=== PATIENT | female | born 1960 | race Caucasian/White ===

== ENCOUNTER 2016-04-19 22:27 | Inpatient (IN) | payer BC ==
[2016-04-19] MEDS ORDERED: Albuterol/Ipratropium Neb 3 ML NEB NEB ONE (22:56)
[2016-04-19] MEDS ORDERED: ALBUTEROL 0.083% 3 ML NEB NEB ONE (22:56)
[2016-04-19] MEDS ORDERED: METHYLPREDNISOLONE 125 MG/2 ML VIAL IV ONE (22:56)
--- NOTE | 2016-04-19 22:59 | EDPRACDOC ---
- General Information Chief Complaint: Dyspnea/Resp distress Stated Complaint: SHOB & COUGH Time Seen by Provider: 04/19/16 22:51 Information Source: Patient Mode Of Arrival: Ambulance Home Medications: Home Medications Albuterol Sulfate 2.5 mg IH Q4 #30 vial.neb 04/06/16 Amoxicillin/Potassium Clav [Augmentin 875-125 Tablet] 1 tab PO BID 04/06/16 Levofloxacin [Levaquin] 750 mg PO DAILY #10 tab 04/06/16 Prednisone [Sterapred DS 10 mg/12 day pack] 48 tab PO DIR #1 pack 04/06/16 Tussionex [Tussionex Oral Suspension] 5 ml PO BID PRN #120 ml 04/06/16 Allergies/Adverse Reactions: Allergies Allergy/AdvReac Type Severity Reaction Status Date / Time No Known Allergies Allergy Verified 04/06/16 17:04 - History of Present Illness Onset: 4 days HPI: Pt c/o increased SOB x 4 days with congestion, cough. Pt states she has been sick since Feb. Pt has completed multiple antibiotics and steroids. Denies fever , earache, sore throat, cp, abd pain, n/v, changes in bowel or bladder, rash. Pt states leg swelling this episode. 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 negative: Fever, Chills, Weakness, Fatigue, Loss of Appetite Ears: No Symptoms Reported. negative: Pain, Hearing Loss, Drainage, Ear Pulling Throat: No Symptoms Reported. negative: Pain, Swelling Nose: Congestion. negative: No Symptoms Reported, Abrasion, Bleeding, Discharge , Deformity, Ecchymosis, Injection, Laceration, Swelling, Tender Mouth: No Symptoms Reported. negative: Pain, Drooling Respiratory: Cough, Shortness of Breath Cardiovascular: Edema. negative: No Symptoms Reported, Chest Pain, Cyanosis, Orthopnea, Palpitations, PND, Syncope, Skin Mottling Gastrointestinal: No Symptoms Reported. negative: Pain, Constipation, Nausea, Vomiting, Diarrhea, Melena, Formula Intolerance Genitourinary: No Symptoms Reported. negative: Dysuria, Hematuria, Frequency, Discharge, Bleeding, Testicular Pain, Neurological: No Symptoms Reported. negative: Headache, Dizziness, Seizure, Numbness, Weakness, Speech Difficulty, Gait Difficulty Musculoskeletal: No Symptoms Reported. negative: Neck, Chestwall, Ribs, Back, Shoulder, Arm, Elbow, Forearm, Wrist, Hand, Pelvis, Hip, Femur, Knee, Leg, Ankle , Foot Integumentary: No Symptoms Reported. negative: Itching, Rash, Bruising, Wound Allergic/Immunologic: No Symptoms Reported. negative: Hives, Itching Hematologic: No Symptoms Reported. negative: Lymphadenopathy, Easy Bruising, Easy Bleeding Psychiatric: No Symptoms Reported. negative: Anxiety, Depression, Hallucinations, Insomnia, Suicidal - Physical Exam Constitutional: Alert, Distress (moderate) Oriented to: Time, Person, Place Last recorded Vital Signs: Last Vital Signs Temp 98.1 F 04/19/16 22:42 Pulse 105 04/19/16 22:42 Resp 22 04/19/16 22:42 BP 171/107 H 04/19/16 22:42 Pulse Ox 86 L 04/19/16 22:42 Oxygen Pulse Oxygen Saturation 86 O2 Device Oxygen Flow Rate Fraction of Inspired Oxygen ( FIO2) - HEENT Head: Normal ( normocephalic) Eye Exam: Normal (PERRL, EOMI, Sclera white) Oropharynx: Membranes Dry Tympanic Membrane: Normal ENT EAC: Normal Nose: Congestion Neck: Normal (FROM, trachea at midline) - Respiratory/Cardiovascular Respiratory: Diminished, Wheezes Cardiovascular: Tachycardia - GI Auscultation: Normal (NABS) Palpation: Normal (Soft,No rebound or guarding, non distended) Tenderness: Non tender - Musculoskeletal Back: Normal (Non-Tender) Extremities: Edema (+2 pitting edema), Pedal Edema - Integumentary Skin: Normal, Warm, Dry Lymphatics: Normal (no adenopathy) - Neurologic Memory Impaired: Normal Motor Function: Normal (Normal tone, Pulses 2+ No cyanosis or edema, FROM) Mood Description: Normal Perception: Normal ED SOB MDM - Differential Diagnosis Differential Diagnosis: Heart Failure, Pulmonary Embolus, Pnuemonia, Respiratory Insufficiency, URI, Other (COPD excaerbation) - Results Result Diagrams: 04/19/16 22:51 04/19/16 23:07 - EKG EKG #1 EKG Time: 23:45 Rate: bpm: 105 [place]: RAD Rhythm: ST Block: None ST: Nonsp Comparison: 01/24/13 - Departure Disposition: Admit IP To This Hospital Condition: Stable Final Diagnosis: Acute exacerbation of chronic obstructive airways disease Acute respiratory failure Qualifiers: Respiratory failure complication: hypoxia and hypercapnia Qualified Code(s): J96.01 - Acute respiratory failure with hypoxia; J96.02 - Acute respiratory failure with hypercapnia Education/Counseling Given To: Patient Education/Counseling Given Regarding: Diagnosis, Treatment Decision to Admit Time: 23:51 Decision to admit date: 04/20/16 Decision to admit: from ED - Physician Consulted Hospitalist Time Called: 23:51 Provider Called: Lorne Cristobal Time [employer] Returned Call: 23:51 (Will see in ED)
[2016-04-19 23:14] LABS: ALLEN'S TEST PASS; TCO2 33.8 MMOL/L (23-27)
[2016-04-19 23:15] LABS: ABG Draw Site Right Radial
[2016-04-19 23:39] LABS: AUTOMATED BASOPHIL 0.2 % (0-2); AUTOMATED EOSINOPHIL 0.1 % (0-5); AUTOMATED LYMPH 13.2 % (17-44); AUTOMATED NEUTROPHIL 74.5 % (45-76); MPV 8.8 fL (7.4-10.4)
[2016-04-19] MEDS ORDERED: Pharmacy Review for Metformin - IV Contrast Given SCH (23:45)
[2016-04-19 23:54] LABS: BLOOD UREA NITROGEN 27 MG/DL (7-17); CALCIUM 9.7 MG/DL (8.4-10.2); CALCULATED OSMOLALITY 270 MOs/Kg (270-290); CHLORIDE 96 mEq/L (98-107); GLUCOSE 114 MG/DL (70-99); SODIUM LEVEL 137 mEq/L (137-146); TOTAL PROTEIN 7.8 G/DL (6.3-8.2)
--- NOTE | 2016-04-19 23:56 | HISTPHYS ---
- Chief Complaint shortness of breath - History of Present Illness PRIMARY CARE PROVIDER: Dr. Alejo HPI: The patient is a 56 yo woman who presents with acute shortness of breath. She is feeling so bad that she can't even take a few steps before becoming severely short of breath. Short of breath even sitting. She has been having recurrent episodes of shortness of breath over the last 8 weeks. This most recent episode started after she completed the most recent round of antibiotic and prednisone. Onset: 4 days ago but much worse today. Duration: now constant. Character: Can't get a good breath. Alleviated by: Nothing. Exacerbated by: exertion. Associated Symptoms: Unable to sleep due to shortness of breath. Coughing but unable to get much sputum. Wheezing. No chest pain. Has palpitations when she walks. Has had leg swelling. No fever but says she feels hot and she is burning up. No chills or diaphoresis. Nausea and vomiting. Intermittent diarrhea. No abdominal pain, constipation, or bloody stool. Treatments: none at home except usual medications. She does not wear oxygen at home. Has been on 3 sets of antibiotics and steroids since February 2016 but as soon as she stops them she gets worse again. Finished last set on Friday (4 days ago) and started to have shortness of breath the next day. - Medical History Respiratory History: Reports: COPD (denies, but is on inhalers.) Psychological History: Denies: Depression - Surgical History Reports: Tonsillectomy/Adnoidectomy, Other (Ear surgeries. Bladder stem stretched.) - Medictions/Allergies Allergies No Known Allergies Allergy (Verified 04/06/16 17:04) Current Medication List: Reviewed Home Medications Albuterol Sulfate 2.5 mg IH Q4 #30 vial.neb 04/06/16 Amoxicillin/Potassium Clav [Augmentin 875-125 Tablet] 1 tab PO BID 04/06/16 Levofloxacin [Levaquin] 750 mg PO DAILY #10 tab 04/06/16 Prednisone [Sterapred DS 10 mg/12 day pack] 48 tab PO DIR #1 pack 04/06/16 Tussionex [Tussionex Oral Suspension] 5 ml PO BID PRN #120 ml 04/06/16 - Family History Reports: Respiratory Disorders (Mother.), Other (Father: unknown.) - Social History Smoking Status: Heavy tobacco smoker (5 or more cigarettes/day or daily pipe/ cigar) (Smokes half ppd. Previously 1 ppd. Started 20 yo.) Social History: Reports: Alcohol Use (rare). Denies: Substance Use Disorder - Review of Systems GENERAL: No fever but says she feels hot and she is burning up. No chills or diaphoresis. Positive for fatigue/malaise. HEENT: No ear pain or discharge. No nasal discharge or bleeding. No throat pain or swelling. No eye pain or eye redness. RESPIRATORY: Has cough, wheezing, and shortness of breath. CARDIOVASCULAR: No chest pain. Has palpitations when she walks. Leg swelling. GI: Nausea and vomiting. Intermittent diarrhea. No abdominal pain, constipation , or bloody stool. NEUROLOGICAL: No headache or focal weakness. INTEGUMENT: no rashes, itching, or lesions. LYMPHATIC SYSTEM: no lymph node swelling or pain. MUSCULOSKELETAL: no new pain or joint swelling. GENITOURINARY: No dysuria or hematuria. ENDOCRINE: No polyuria or polydipsia. HEME: No chronic anemia, bleeding, or easy bruising. - Physical Exam Vital Signs: Initial Vitals Temperature 98.1 F 04/19/16 22:42 Pulse Rate 105 04/19/16 22:42 Respiratory Rate 22 04/19/16 22:42 Blood Pressure 171/107 H 04/19/16 22:42 Pulse Oxygen Saturation 86 L 04/19/16 22:42 Weight: 81.6 kg Height: 5 feet 7 inches BMI: 28.2 - Other Exam Other Exam Findings: GENERAL: Ill-appearing, well nourished, in acute distress. HEENT: Normocephalic, atraumatic; pupils equal and round. Nares patent, without discharge or bleeding. No oropharyngeal lesions or erythema, except tongue with mild erythema. Mucous membranes are dry. NECK: is supple, no masses, trachea midline. RESPIRATORY: Clear to auscultation bilaterally. Chest wall movements are symmetric. Sitting up in tripod position. Use of accessory muscles to breathe. Tachypnea. Bilateral wheezing. Decreased breath sounds in bases. No rales, rhonchi. CARDIOVASCULAR: Normal S1, S2. Murmur 2/6 systolic. No rubs, or gallops. PMI non -displaced. Carotids: no carotid bruits. Tachycardia. DP pulses 2+ bilaterally. GI: soft, nontender, non-distended, normal active bowel sounds. No hepatosplenomegaly. INTEGUMENT: Clean, dry, and intact. No rashes. No significant lesions. Areas of ecchymoses on hands, legs. MUSCULOSKELETAL: Moving all extremities. No cyanosis. No clubbing. Edema: 1+ lower extremity edema bilaterally. NEUROLOGICAL: Cranial nerves 2-12 grossly intact. Motor 5/5 throughout. Reflexes : 2+ bilaterally. Babinski: toes downgoing bilaterally. Intact Finger to nose. Sensory grossly intact to light touch. Intact rapid alternating movements bilaterally. No pronator drift. PSYCHIATRIC: Fully oriented. Normal and appropriate affect. LYMPHATIC: No cervical lymphadenopathy. No supraclavicular lymphadenopathy. - Lab Results Laboratory Tests 04/19/16 04/19/16 04/19/16 22:51 23:05 23:07 WBC 18.6 H RBC 6.29 H Hgb 18.4 H Hct 55.4 H MCV 88 MCH 29.3 MCHC 33.2 RDW 15.1 H Plt Count 232 MPV 8.8 Neut % (Auto) 74.5 Lymph % (Auto) 13.2 L Bracken % (Auto) 12.0 H Eos % (Auto) 0.1 Baso % (Auto) 0.2 Absolute Neuts (auto) 13.76 H Absolute Lymphs (auto) 2.42 PT INR APTT Puncture Site Right radial pH 7.400 pCO2 52.0 H pO2 53.0 L HCO3 32.2 H Total CO2 33.8 H Base Excess 6.0 H FiO2 % 21 Specimen Drawn By [place] Sodium 137 Potassium 4.5 Chloride 96 L Carbon Dioxide 30 Anion Gap 16 BUN 27 H Creatinine 0.70 Estimated GFR (MDRD) > 60 Glucose 114 H Calculated Osmolality 270 Lactic Acid Calcium 9.7 Total Bilirubin 1.0 AST 35 ALT 48 Alkaline Phosphatase 63 Troponin I 0.07 Qew-G-Mwrqvzuwiia Pept 1550 H Total Protein 7.8 Albumin 4.4 04/19/16 04/19/16 23:07 23:07 WBC RBC Hgb Hct MCV MCH MCHC RDW Plt Count MPV Neut % (Auto) Lymph % (Auto) Bracken % (Auto) Eos % (Auto) Baso % (Auto) Absolute Neuts (auto) Absolute Lymphs (auto) PT 10.0 INR 1.0 APTT 23.7 Puncture Site pH pCO2 pO2 HCO3 Total CO2 Base Excess FiO2 % Specimen Drawn By Sodium Potassium Chloride Carbon Dioxide Anion Gap BUN Creatinine Estimated GFR (MDRD) Glucose Calculated Osmolality Lactic Acid 1.8 Calcium Total Bilirubin AST ALT Alkaline Phosphatase Troponin I Zzk-E-Jgkqhdyecfo Pept Total Protein Albumin - Diagnostic Findings DIAGNOSTIC DATA: EK bpm. Sinus tachycardia. Possible second-degree AV block. Right axis deviation. Pulmonary disease pattern. Incomplete right bundle branch block. Reviewed EKG personally. IMAGING: Chest x-ray, viewed personally: EXAM: PORTABLE CHEST 1 VIEW COMPARISON: Chest radiograph performed 04/06/2016 FINDINGS: The lungs are hyperexpanded, with flattening of the hemidiaphragms, compatible with COPD. Mild vascular congestion is noted. There is no evidence of focal opacification, pleural effusion or pneumothorax. The cardiomediastinal silhouette is within normal limits. No acute osseous abnormalities are seen. IMPRESSION: Findings of COPD. Mild vascular congestion noted. Lungs otherwise grossly clear. CTA of the chest: EXAM: CT ANGIOGRAPHY CHEST WITH CONTRAST TECHNIQUE: Multidetector CT imaging of the chest was performed using the standard protocol during bolus administration of intravenous contrast. Multiplanar CT image reconstructions and MIPs were obtained to evaluate the vascular anatomy. CONTRAST: 80 cc Isovue 370 COMPARISON: Chest radiograph dated 04/20/[address] dated 02/17/2013 FINDINGS: There is a focal area ground-glass and airspace opacity in the right middle lobe anteriorly which may represent focal pneumonia versus an area of pulmonary infarct. There is emphysematous changes of the lungs. Mild ill-defined ground-glass and nodular density in the right lower lobe (series 3 image 65) may represent atelectasis/scarring. Pneumonia is less likely. There is no pleural effusion or pneumothorax. The central airways are patent. The thoracic aorta appears unremarkable. There is prominence of the main pulmonary trunk compatible with a degree of pulmonary hypertension. No CT evidence of pulmonary embolism. There is no cardiomegaly or pericardial effusion. Top-normal right hilar lymph nodes. The esophagus is grossly unremarkable. No thyroid nodule identified. There is no axillary adenopathy. The chest wall soft tissues appear unremarkable. There is degenerative changes of the spine. No acute fracture. The visualized upper abdomen appears grossly unremarkable. Review of the MIP images confirms the above findings. IMPRESSION: No CT evidence of pulmonary embolism. Focal wedge-shaped ground-glass and nodular density involving the paramediastinal right middle lobe most compatible with pneumonia versus an area of pulmonary infarct. Clinical correlation is recommended. - Assessment (1) Acute respiratory failure with hypoxia J96.01 - ACUTE RESPIRATORY FAILURE WITH HYPOXIA Acute Present on Admission: Yes Also with hypercapnea. Does not wear oxygen at home. Etiology: likely due to COPD exacerbation, but could have other causes. Plan: Oxygen supplementation with VentiMask 40% and adjust as needed. May need BiPAP. (2) COPD exacerbation J44.1 - CHRONIC OBSTRUCTIVE PULMONARY DISEASE W (ACUTE) EXACERBATION Acute Present on Admission: Yes NEW diagnosis for patient. Has had recurrent respiratory distress since 02/2016 ; receives antibiotic and prednisone tapers, but once medications are completed she develops respiratory distress again. Has albuterol at home but no other COPD medications. Does not wear oxygen at home. COPD exacerbation, severe. Plan: Nebs of Duoneb q 6 hours scheduled and albuterol q 2 hours prn. Sputum culture ordered. IV ceftriaxone and IV azithromycin. IV methylprednisolone. Continuous oxygen support. Keep sats below 95% due to COPD. Will start patient on inhaled steroid; she will need teaching regarding how to use the device. Patient will need teaching regarding COPD. (3) Elevated brain natriuretic peptide (BNP) level R79.89 - OTHER SPECIFIED ABNORMAL FINDINGS OF BLOOD CHEMISTRY Acute Present on Admission: Yes Patient has an elevated BNP, lower extremity edema. CXR noted pulmonary congestion without edema. Could have a component of early CHF but it is unclear. Plan: Monitor for fluid overload. 2 g Na diet. Note to primary care doctor: Recommend outpatient echocardiogram. (4) Abnormal CT scan, chest R93.8 - ABNORMAL FINDINGS ON DIAGNOSTIC IMAGING OF BODY STRUCTURES Acute Present on Admission: Yes CT scan findings included: "There is a focal area ground-glass and airspace opacity in the right middle lobe anteriorly which may represent focal pneumonia versus an area of pulmonary infarct. There is emphysematous changes of the lungs. Mild ill-defined ground-glass and nodular density in the right lower lobe (series 3 image 65) may represent atelectasis/scarring. Pneumonia is less likely." Plan: Will cover empirically for infection, although it is less likely given that patient has had antibiotics frequently over the last 8 weeks, and had antibiotics on the day of admission. Recommend referral to a streetsweeper operator for further evaluation. (5) Abnormal EKG R94.31 - ABNORMAL ELECTROCARDIOGRAM [ECG] [EKG] Acute Present on Admission: Yes EKG shows a pulmonary disease pattern, right bundle branch block. Question of 2nd degree AV block, Mobitz I, but not definitive. Plan: Repeat EKG in am. (6) Leukocytosis D72.829 - ELEVATED WHITE BLOOD CELL COUNT, UNSPECIFIED Acute Present on Admission: Yes Elevated WBCs on admission. Could be due to infection, prednisone use, or combination. Plan: Cultures ordered. Consider empiric antibiotics. (7) Polycythemia D75.1 - SECONDARY POLYCYTHEMIA Acute Present on Admission: Yes May be secondary to smoking or dehydration. Plan: Repeat in AM. Stop smoking. Recheck as an outpatient. (8) Bacterial pneumonia J15.9 - UNSPECIFIED BACTERIAL PNEUMONIA Suspected Present on Admission: Yes Possible pneumonia based on CT scan, but pneumonia is considered less likely. Patient has been on multiple antibiotics over the last 8 weeks and is currently on antibiotics from home. Plan: Cultures ordered. Will consider empiric antibiotics. (9) Elevated blood pressure reading R03.0 - ELEVATED BLOOD-PRESSURE READING, W/O DIAGNOSIS OF HTN Acute Present on Admission: Yes No history of hypertension. May be transient. Plan: Monitor blood pressure. Recheck as an outpatient. Consider medication if elevation persists. (10) Tobacco abuse Z72.0 - TOBACCO USE Acute Present on Admission: Yes Counseled to quit. - Plan In summary, this patient is acutely and critically ill. The patient requires treatment of vital organ failure and measures to prevent further life- threatening deterioration of condition. I have spent 50 min in the critical care of this patient. Case Care Discussed with: Patient, Family, Nursing Staff Critical Care: Yes Code: 291
[2016-04-19 23:59] LABS: PARTIAL THROMB. TIME 23.7 SEC (22-35)
--- NOTE | 2016-04-20 00:45 | DIRPT ---
CLINICAL DATA: Acute onset of worsening shortness of breath. Bilateral lower extremity swelling. Initial encounter. EXAM: PORTABLE CHEST 1 VIEW COMPARISON: Chest radiograph performed 04/06/2016 FINDINGS: The lungs are hyperexpanded, with flattening of the hemidiaphragms, compatible with COPD. Mild vascular congestion is noted. There is no evidence of focal opacification, pleural effusion or pneumothorax. The cardiomediastinal silhouette is within normal limits. No acute osseous abnormalities are seen. IMPRESSION: Findings of COPD. Mild vascular congestion noted. Lungs otherwise grossly clear. Electronically Signed By: Ronen Perry M.D. On: 04/20/2016 00:42
--- NOTE | 2016-04-20 01:12 | DIRPT ---
CLINICAL DATA: 56-year-old female with shortness of breath EXAM: CT ANGIOGRAPHY CHEST WITH CONTRAST TECHNIQUE: Multidetector CT imaging of the chest was performed using the standard protocol during bolus administration of intravenous contrast. Multiplanar CT image reconstructions and MIPs were obtained to evaluate the vascular anatomy. CONTRAST: 80 cc Isovue 370 COMPARISON: Chest radiograph dated 04/20/[address] dated 02/17/2013 FINDINGS: There is a focal area ground-glass and airspace opacity in the right middle lobe anteriorly which may represent focal pneumonia versus an area of pulmonary infarct. There is emphysematous changes of the lungs. Mild ill-defined ground-glass and nodular density in the right lower lobe (series 3 image 65) may represent atelectasis/scarring. Pneumonia is less likely. There is no pleural effusion or pneumothorax. The central airways are patent. The thoracic aorta appears unremarkable. There is prominence of the main pulmonary trunk compatible with a degree of pulmonary hypertension. No CT evidence of pulmonary embolism. There is no cardiomegaly or pericardial effusion. Top-normal right hilar lymph nodes. The esophagus is grossly unremarkable. No thyroid nodule identified. There is no axillary adenopathy. The chest wall soft tissues appear unremarkable. There is degenerative changes of the spine. No acute fracture. The visualized upper abdomen appears grossly unremarkable. Review of the MIP images confirms the above findings. IMPRESSION: No CT evidence of pulmonary embolism. Focal wedge-shaped ground-glass and nodular density involving the paramediastinal right middle lobe most compatible with pneumonia versus an area of pulmonary infarct. Clinical correlation is recommended. Electronically Signed By: Juanjo Rothman M.D. On: 04/20/2016 01:09
[2016-04-20] MEDS ORDERED: SIMETHICONE 80 MG TAB PO PRN (01:33)
[2016-04-20] MEDS ORDERED: ACETAMINOPHEN 325 MG/TAB TABLET PO PRN (01:33)
[2016-04-20] MEDS ORDERED: GUAIFEN 100 MG-DEXTROMETH 10 MG PER 5 ML PO PRN (01:33)
[2016-04-20] MEDS ORDERED: PROMETHAZINE 25 MG/ML VIAL IV PRN (01:33)
[2016-04-20] MEDS ORDERED: ONDANSETRON HCL 4 MG/2 ML VIAL IV PRN (01:33)
[2016-04-20] MEDS ORDERED: ACETAMINOPHEN 325 MG SUPP PR PRN (01:33)
[2016-04-20] MEDS ORDERED: BENZONATATE 100 MG PERLES PO PRN (01:33)
[2016-04-20] MEDS ORDERED: BISACODYL 5 MG TAB PO PRN (01:33)
[2016-04-20] MEDS ORDERED: ALBUTEROL 0.083% 3 ML NEB NEB PRN (01:33)
[2016-04-20] MEDS ORDERED: SENNA CONCENTRATE TAB PO PRN (01:33)
[2016-04-20] MEDS ORDERED: Docusate Sodium 100 MG CAP PO PRN (01:33)
[2016-04-20] MEDS ORDERED: Vaccine Screening Complete SCH (02:00)
[2016-04-20] MEDS: CEFTRIAXONE 1 GM in D5W 100 ML IV SCH (02:08)
[2016-04-20] MEDS: ENOXAPARIN 40 MG/0.4 ML PFS SQ SCH ×2 (02:08→20:53)
[2016-04-20 02:28] LABS: LEUKOCYTES/URINE NEG (NEGATIVE); NITRITE/URINE NEG (NEGATIVE); URINE OCCULT BLOOD 2+ (NEG/TRACE); WBC/URINE 0-2 (0-5)
[2016-04-20] MEDS: AZITHROMYCIN 500 MG in D5W 250 ML IV SCH (02:47)
[2016-04-20] MEDS: Albuterol/Ipratropium Neb 3 ML NEB NEB SCH ×4 (02:53→20:30)
[2016-04-20] MEDS: METHYLPREDNISOLONE 125 MG/2 ML VIAL IV SCH ×3 (04:33→20:54)
[2016-04-20 05:39] LABS: MPV 8.7 fL (7.4-10.4)
[2016-04-20 05:53] LABS: BLOOD UREA NITROGEN 27 MG/DL (7-17); CALCIUM 9.4 MG/DL (8.4-10.2); CALCULATED OSMOLALITY 276 MOs/Kg (270-290); CHLORIDE 94 mEq/L (98-107); GLUCOSE 188 MG/DL (70-99); SODIUM LEVEL 138 mEq/L (137-146)
--- NOTE | 2016-04-20 11:36 | CAPUEKG ---
[place], [place] Test Date: 2016-04-20 Pat Name: KALIA RIVERA Department: Room: 452 Gender: Female Garment Manufacturer: : Requested By: Order Number: Reading MD: Johnathon Valladares MD Measurements Intervals [place] Rate: 86 P: 85 NV: 126 QRS: 65 QRSD: 74 T: 54 QT: 362 QTc: 433 Interpretive Statements Sinus rhythm with premature atrial complexes Biatrial enlargement Pulmonary disease pattern Abnormal ECG Electronically Signed On 04-20-16 11:35:12 EST by Johnathon Valladares MD [id number]> [id number]
--- NOTE | 2016-04-20 11:51 | CAPUECHO ---
INDICATION: SOB HEIGHT: 170.2 cm (5 ft 7.0 in) WEIGHT: 81.2 kg (179.0 lbs) BP: 163/85 BSA: 1.265137 m MEASUREMENTS 2D RVIDd: 3.2 cm IVSd: 1.1 cm LVIDd: 4.0 cm LVPWd: 1.1 cm LVIDs: 2.7 cm EF(Teich): 62.03 % LA Diam: 3.1 cm EF Biplane: 71.13 % LAESV MOD A4C: 31.0 ml LAESV MOD A2C: 41.3 ml LAESV Index (A-L): 20.44 ml/m M-MODE Ao Diam: 3.3 cm LA Diam: 3.1 cm DOPPLER MV E Edson: 0.66 m/s MV A Edson: 0.97 m/s MV PHT: 111.25 ms MVA By PHT: 1.98 cm LVOT Vmax: 1.65 m/s AV Vmax: 1.75 m/s FINDINGS ------- Procedure:2D images, m-mode, color and spectral Doppler were obtained and reviewed. ECG rhythm:Sinus rhythm. Study quality:This was a technically adequate study. Left Ventricle:The left ventricular size is normal. There is borderline concentric left ventricula r hypertrophy. Overall left ventricular systolic function is normal with, an EF between 65 - 70 %. The diastolic filling pattern indicates impaired relaxation. Right Ventricle:The right ventricle is normal in size and function. Left Atrium:The left atrium is normal in size. Right Atrium:The right atrium is normal in size and function. Aortic Valve:The aortic valve is trileaflet, and appears structurally normal. No aortic stenosis or regurgitation. Mitral Valve:Normal appearing mitral valve. There is trace to mild mitral regurgitation. Tricuspid Valve:The tricuspid valve appears structurally normal. Trace tricuspid regurgitation pre sent. Pulmonic Valve:The pulmonic valve is normal. Trace/mild (physiologic) pulmonic regurgitation. Aorta:The aortic root, ascending aorta and aortic arch appear normal. IVC:Normal inferior vena cava with normal inspiratory collapse. Pericardium:There is no pericardial effusion. CONCLUSIONS 1. Overall left ventricular systolic function is normal with, an EF between 65 - 70 %. 2. The diastolic filling pattern indicates impaired relaxation. 3. The left atrium is normal in size. 4. There is trace to mild mitral regurgitation. 5. Trace tricuspid regurgitation present. Electronically Signed By: Johnathon Valladares MD -- Electronically Signed On: 11:50:31
[2016-04-20] MEDS ORDERED: BUSPIRONE 10 MG TAB PO ONE (13:00)
[2016-04-20] MEDS: NICOTINE 21 MG PATCH TOP SCH (13:05)
--- NOTE | 2016-04-20 14:36 | GENMEDPROG ---
Chief Complaint: Still significantly short of breath. Wheezing and congested. Appears restless and anxious. Notes Reviewed: Yes Events from last night noted and discussed with Clinical Staff Current Medication List: Reviewed Currently: Reports: Cough, Wheezing, GUZMÁN, SOB. Denies: Nausea and Vomiting, Abdominal Pain, Chest Pain DVT Prophylaxis: Yes - Physical Examination Vital Signs and I&O: Last Vital Signs Temp 98.2 F 04/20/16 11:17 Pulse 100 04/20/16 12:00 Resp 20 04/20/16 11:17 BP 153/85 04/20/16 11:17 Pulse Ox 92 04/20/16 11:17 Oxygen Pulse Oxygen Saturation 92 O2 Device Nasal Cannula Oxygen Flow Rate 2 Fraction of Inspired Oxygen ( 45 FIO2) Intake & Output 04/17/16 04/18/16 04/19/16 04/20/16 23:59 23:59 23:59 23:59 Intake Total 1096 Output Total 3700 Balance -2604 Patient's weight 81.556 kg General: Alert, Oriented x3, Moderate distress, Well nourished. negative: Well appearing (Acutely ill-appearing) HEENT: Normal, PERRLA, EOMI, Anicteric Sclera Neck: Non-tender, Full range of motion, Normal Trachea alignment, Normal inspection. negative: JVD Lymphatics: Normal (no adenopathy). negative: Adenopathy Respiratory: Diminished, Rhonchi, Wheezes Cardiovascular: Regular rate and rhythm, No Gallops,Rubs/Murmurs GI: Normal bowel sounds, Soft, Non tender, No hepatospenomegaly, No masses Extremities/Musculoskeletal: Normal pulses. negative: Tenderness, Swelling, Edema Skin: Warm,Dry and Intact, No rashes, No breakdown, No significant lesion Neurological: Normal Steady Gait, Normal speech, Strength at 5/5 X4 ext, Cranial nerves 3-12 NL Psych/Mental Status: Cooperative, Anxious, Restless Lab/DI/Studies Reviewed: Laboratory Results - last 24 hr 04/19/16 04/19/16 04/19/16 22:51 23:05 23:07 WBC 18.6 H RBC 6.29 H Hgb 18.4 H Hct 55.4 H MCV 88 MCH 29.3 MCHC 33.2 RDW 15.1 H Plt Count 232 MPV 8.8 Neut % (Auto) 74.5 Lymph % (Auto) 13.2 L [place] % (Auto) 12.0 H Eos % (Auto) 0.1 Baso % (Auto) 0.2 Absolute Neuts (auto) 13.76 H Absolute Lymphs (auto) 2.42 PT INR APTT Puncture Site Right radial pH 7.400 pCO2 52.0 H pO2 53.0 L HCO3 32.2 H Total CO2 33.8 H Base Excess 6.0 H FiO2 % 21 Specimen Drawn By Canlar Sodium 137 Potassium 4.5 Chloride 96 L Carbon Dioxide 30 Anion Gap 16 BUN 27 H Creatinine 0.70 Estimated GFR (MDRD) > 60 Glucose 114 H Calculated Osmolality 270 Lactic Acid Calcium 9.7 Total Bilirubin 1.0 AST 35 ALT 48 Alkaline Phosphatase 63 Troponin I 0.07 [id number] Pept 1550 H Total Protein 7.8 Albumin 4.4 Urine Color Urine Clarity Urine pH Ur Specific [place] Urine Protein Urine Glucose (UA) Urine Ketones Urine Occult Blood Urine Nitrite Urine Bilirubin Urine Urobilinogen Ur Leukocyte Esterase Urine RBC Urine WBC Ur Epithelial Cells Urine Bacteria Urine Mucus 04/19/16 04/19/16 04/20/16 23:07 23:07 01:50 WBC RBC Hgb Hct MCV MCH MCHC RDW Plt Count MPV Neut % (Auto) Lymph % (Auto) [place] % (Auto) Eos % (Auto) Baso % (Auto) Absolute Neuts (auto) Absolute Lymphs (auto) PT 10.0 INR 1.0 APTT 23.7 Puncture Site pH pCO2 pO2 HCO3 Total CO2 Base Excess FiO2 % Specimen Drawn By Sodium Potassium Chloride Carbon Dioxide Anion Gap BUN Creatinine Estimated GFR (MDRD) Glucose Calculated Osmolality Lactic Acid 1.8 Calcium Total Bilirubin AST ALT Alkaline Phosphatase Troponin I 0.06 [id number]-[id number] Pept Total Protein Albumin Urine Color Urine Clarity Urine pH Ur Specific [place] Urine Protein Urine Glucose (UA) Urine Ketones Urine Occult Blood Urine Nitrite Urine Bilirubin Urine Urobilinogen Ur Leukocyte Esterase Urine RBC Urine WBC Ur Epithelial Cells Urine Bacteria Urine Mucus 04/20/16 04/20/16 04/20/16 02:08 05:15 05:15 WBC RBC Hgb Hct MCV MCH MCHC RDW Plt Count MPV Neut % (Auto) Lymph % (Auto) [place] % (Auto) Eos % (Auto) Baso % (Auto) Absolute Neuts (auto) Absolute Lymphs (auto) PT INR APTT Puncture Site pH pCO2 pO2 HCO3 Total CO2 Base Excess FiO2 % Specimen Drawn By Sodium 138 Potassium 4.8 Chloride 94 L Carbon Dioxide 34 H Anion Gap 15 BUN 27 H Creatinine 0.70 Estimated GFR (MDRD) > 60 Glucose 188 H Calculated Osmolality 276 Lactic Acid Calcium 9.4 Total Bilirubin AST ALT Alkaline Phosphatase Troponin I 0.05 Ihj-C-Nakbjzoivok Pept Total Protein Albumin Urine Color Yellow Urine Clarity Clear Urine pH 6.0 Ur Specific [place] 1.010 Urine Protein 2+ H Urine Glucose (UA) Neg Urine Ketones Neg Urine Occult Blood 2+ H Urine Nitrite Neg Urine Bilirubin Neg Urine Urobilinogen <2.0 Ur Leukocyte Esterase Neg Urine RBC 2-5 Urine WBC 0-2 Ur Epithelial Cells 1+ Urine Bacteria Few Urine Mucus Occ 04/20/16 05:15 WBC 15.2 H RBC 6.06 H Hgb 17.6 H Hct 53.9 H MCV 89 MCH 29.0 MCHC 32.6 L RDW 14.8 H Plt Count 211 MPV 8.7 Neut % (Auto) Lymph % (Auto) [place] % (Auto) Eos % (Auto) Baso % (Auto) Absolute Neuts (auto) Absolute Lymphs (auto) PT INR APTT Puncture Site pH pCO2 pO2 HCO3 Total CO2 Base Excess FiO2 % Specimen Drawn By Sodium Potassium Chloride Carbon Dioxide Anion Gap BUN Creatinine Estimated GFR (MDRD) Glucose Calculated Osmolality Lactic Acid Calcium Total Bilirubin AST ALT Alkaline Phosphatase Troponin I Syr-W-Ozsoowzdhts Pept Total Protein Albumin Urine Color Urine Clarity Urine pH Ur Specific [place] Urine Protein Urine Glucose (UA) Urine Ketones Urine Occult Blood Urine Nitrite Urine Bilirubin Urine Urobilinogen Ur Leukocyte Esterase Urine RBC Urine WBC Ur Epithelial Cells Urine Bacteria Urine Mucus - Assessment (1) Acute respiratory failure with hypoxia Acute J96.01 - ACUTE RESPIRATORY FAILURE WITH HYPOXIA Comment/Plan: Still significantly short of breath. Restless and anxious appearing continue IV antibiotics, IV steroids, nebulizer treatments and pulmonary toilet. 2D echo has been ordered. (2) COPD exacerbation Acute J44.1 - CHRONIC OBSTRUCTIVE PULMONARY DISEASE W (ACUTE) EXACERBATION Comment/Plan: NEW diagnosis for patient. Has had recurrent respiratory distress since 02/2016; receives antibiotic and prednisone tapers, but once medications are completed she develops respiratory distress again. Has albuterol at home but no other COPD medications. Does not wear oxygen at home. COPD exacerbation, severe. Plan: Nebs of Duoneb q 6 hours scheduled and albuterol q 2 hours prn. Sputum culture ordered. IV ceftriaxone and IV azithromycin. IV methylprednisolone. Continuous oxygen support. Keep sats below 95% due to COPD. Will start patient on inhaled steroid; she will need teaching regarding how to use the device. Patient will need teaching regarding COPD. (3) Bacterial pneumonia Suspected J15.9 - UNSPECIFIED BACTERIAL PNEUMONIA Comment/Plan: Continue antibiotics and pulmonary toilet. Has been on frequent courses of antibiotics over the last several weeks. Questionable atypical infection. May need pulmonary consultation. (4) Abnormal CT scan, chest Acute R93.8 - ABNORMAL FINDINGS ON DIAGNOSTIC IMAGING OF BODY STRUCTURES Comment/Plan: Chest CT with ground glass appearing pneumonia. Possible pulmonary infarct. Continue antibiotics nebulizer treatments and pulmonary toilet. (5) Elevated brain natriuretic peptide (BNP) level Acute R79.89 - OTHER SPECIFIED ABNORMAL FINDINGS OF BLOOD CHEMISTRY Comment/ Plan: 2D echo has been ordered. Will evaluate for possible CHF (6) Tobacco abuse Acute Z72.0 - TOBACCO USE Comment/Plan: Stressed smoking cessation. Continue Wellbutrin and nicotine patch (7) Hypertension Acute I10 - ESSENTIAL (PRIMARY) HYPERTENSION Qualifiers: Hypertension type: essential hypertension Qualified Code(s): I10 - Essential (primary) hypertension Comment/Plan: No history of this. Continue to monitor. Case Care Discussed with: Patient, Nursing Staff, Physical Therapy, Resource Management, Respiratory Therapy, Card Room Manager
[2016-04-20] MEDS: BUSPIRONE 10 MG TAB PO SCH (20:53)
[2016-04-20] MEDS ORDERED: BUSPIRONE HCL PO SCH (21:00)
[2016-04-20] MEDS: ACYCLOVIR 200 MG CAP PO SCH (22:02)
[2016-04-21] MEDS: Albuterol/Ipratropium Neb 3 ML NEB NEB SCH ×4 (01:57→19:16)
[2016-04-21] MEDS: CEFTRIAXONE 1 GM in D5W 100 ML IV SCH (02:25)
[2016-04-21] MEDS: AZITHROMYCIN 500 MG in D5W 250 ML IV SCH (04:00)
[2016-04-21] MEDS: METHYLPREDNISOLONE 125 MG/2 ML VIAL IV SCH ×3 (05:01→22:40)
[2016-04-21] MEDS ORDERED: PNEUMOCOCCAL 0.5 ML VIAL IM ONE (08:00)
[2016-04-21] MEDS ORDERED: FLU VACCINE (Afluria) 0.5 ML DOSE IM ONE (08:00)
[2016-04-21] MEDS ORDERED: ACYCLOVIR PO SCH (09:00)
[2016-04-21] MEDS ORDERED: FLUTICASONE PROPIONATE 16 GM BOT NAS SCH (10:00)
[2016-04-21] MEDS: BUSPIRONE 10 MG TAB PO SCH ×2 (10:12→22:10)
[2016-04-21] MEDS: FLUTICASONE PROPIONATE 16 GM BOT NAS SCH ×2 (10:12→22:10)
[2016-04-21] MEDS: NICOTINE 21 MG PATCH TOP SCH (10:17)
[2016-04-21] MEDS: FEXOFENADINE HCL 60 MG TAB PO SCH (12:27)
--- NOTE | 2016-04-21 13:08 | GENMEDPROG ---
Chief Complaint: Wants to go home. However still significantly hypoxic. Less congested on exam. Notes Reviewed: Yes Events from last night noted and discussed with Clinical Staff Current Medication List: Reviewed Currently: Reports: Cough, Wheezing, GUZMÁN, SOB. Denies: Nausea and Vomiting, Abdominal Pain, Chest Pain DVT Prophylaxis: Yes - Physical Examination Vital Signs and I&O: Last Vital Signs Temp 97.9 F 04/21/16 12:35 Pulse 95 04/21/16 13:05 Resp 22 04/21/16 12:35 BP 164/85 04/21/16 12:35 Pulse Ox 93 04/21/16 12:35 Oxygen Pulse Oxygen Saturation 93 O2 Device Nasal Cannula Oxygen Flow Rate 3.5 Fraction of Inspired Oxygen ( 45 FIO2) Intake & Output 04/18/16 04/19/16 04/20/16 04/21/16 23:59 23:59 23:59 23:59 Intake Total 2306 803 Output Total 9100 1750 Balance -6810 -440 Patient's weight 81.556 kg 80.195 kg General: Alert, Oriented x3, Moderate distress, Well nourished. negative: Well appearing (Acutely ill-appearing) HEENT: Normal, PERRLA, EOMI, Anicteric Sclera Neck: Non-tender, Full range of motion, Normal Trachea alignment, Normal inspection. negative: JVD Lymphatics: Normal (no adenopathy). negative: Adenopathy Respiratory: Diminished, Rhonchi, Wheezes Cardiovascular: Regular rate and rhythm, No Gallops,Rubs/Murmurs GI: Normal bowel sounds, Soft, Non tender, No hepatospenomegaly, No masses Extremities/Musculoskeletal: Normal pulses. negative: Tenderness, Swelling, Edema Skin: Warm,Dry and Intact, No rashes, No breakdown, No significant lesion Neurological: Normal Steady Gait, Normal speech, Strength at 5/5 X4 ext, Cranial nerves 3-12 NL Psych/Mental Status: Cooperative, Anxious, Restless Lab/DI/Studies Reviewed: Laboratory Results - last 24 hr 04/20/16 19:49 POC Capillary Glucose 124 H - Assessment (1) Acute respiratory failure with hypoxia Acute J96.01 - ACUTE RESPIRATORY FAILURE WITH HYPOXIA Comment/Plan: Says she feels significantly better. However she remains significantly hypoxic. Will increase activity and ambulate. 2D echo within normal limits. Continue IV antibiotics IV steroids nebulizer treatments and pulmonary toilet. (2) COPD exacerbation Inactive J44.1 - CHRONIC OBSTRUCTIVE PULMONARY DISEASE W (ACUTE) EXACERBATION Comment/Plan: Continue IV steroids, IV antibiotics and nebulizer treatments. (3) Bacterial pneumonia Suspected J15.9 - UNSPECIFIED BACTERIAL PNEUMONIA Comment/Plan: Continue IV antibiotics and pulmonary toilet. (4) Abnormal CT scan, chest Acute R93.8 - ABNORMAL FINDINGS ON DIAGNOSTIC IMAGING OF BODY STRUCTURES Comment/Plan: Chest CT with ground glass appearing pneumonia. Possible pulmonary infarct. Continue antibiotics nebulizer treatments and pulmonary toilet. (5) Elevated brain natriuretic peptide (BNP) level Acute R79.89 - OTHER SPECIFIED ABNORMAL FINDINGS OF BLOOD CHEMISTRY Comment/ Plan: 2D echo has been ordered. Will evaluate for possible CHF (6) Tobacco abuse Acute Z72.0 - TOBACCO USE Comment/Plan: Stressed smoking cessation. Continue Wellbutrin and nicotine patch (7) Hypertension Acute I10 - ESSENTIAL (PRIMARY) HYPERTENSION Qualifiers: Hypertension type: essential hypertension Qualified Code(s): I10 - Essential (primary) hypertension Comment/Plan: No history of this. Continue to monitor. Case Care Discussed with: Patient, Nursing Staff, Resource Management, Respiratory Therapy, Building Services Engineer
[2016-04-21] MEDS: ENOXAPARIN 40 MG/0.4 ML PFS SQ SCH (15:51)
[2016-04-21] MEDS ORDERED: NACL 0.65% NASAL 45 ML BOTTLE NAS PRN (18:29)
[2016-04-21] MEDS: TEMAZEPAM 15 MG CAP PO PRN (22:10)
[2016-04-21] MEDS: ACYCLOVIR 200 MG CAP PO SCH (22:10)
[2016-04-22] MEDS ORDERED: MORPHINE 2 MG/ML INJECTION IV PRN (00:08)
[2016-04-22] MEDS: OXYCODONE HCL 5 MG TABLET PO PRN ×3 (00:41→21:52)
[2016-04-22] MEDS: TEMAZEPAM 15 MG CAP PO PRN (00:42)
[2016-04-22] MEDS: Albuterol/Ipratropium Neb 3 ML NEB NEB SCH ×4 (01:04→19:15)
[2016-04-22] MEDS: CEFTRIAXONE 1 GM in D5W 100 ML IV SCH (01:32)
[2016-04-22] MEDS: AZITHROMYCIN 500 MG in D5W 250 ML IV SCH (03:19)
[2016-04-22 04:57] LABS: MPV 8.5 fL (7.4-10.4)
[2016-04-22 05:05] LABS: BLOOD UREA NITROGEN 27 MG/DL (7-17); CALCULATED OSMOLALITY 277 MOs/Kg (270-290); CHLORIDE 98 mEq/L (98-107); GLUCOSE 170 MG/DL (70-99); SODIUM LEVEL 139 mEq/L (137-146)
[2016-04-22] MEDS: METHYLPREDNISOLONE 125 MG/2 ML VIAL IV SCH ×3 (05:05→21:42)
[2016-04-22 05:26] LABS: ALLEN'S TEST PASS; BEb 5.6 (+/- 2); TCO2 36.5 MMOL/L (23-27)
[2016-04-22 05:42] LABS: ABG Draw Site Right Radial
[2016-04-22 07:10] LABS: SEG NEUTROPHIL 82 % (45-76)
[2016-04-22] MEDS: BUSPIRONE 10 MG TAB PO SCH ×2 (08:10→21:41)
[2016-04-22] MEDS: FEXOFENADINE HCL 60 MG TAB PO SCH (08:10)
[2016-04-22] MEDS: FLUTICASONE PROPIONATE 16 GM BOT NAS SCH ×2 (08:11→21:42)
--- NOTE | 2016-04-22 08:14 | DIRPT ---
CLINICAL DATA: 56-year-old female with history of pneumonia. Cough. EXAM: PORTABLE CHEST 1 VIEW COMPARISON: Chest x-ray 04/20/2016. FINDINGS: Chronic scarring in the right lung base. Lung volumes are normal. No consolidative airspace disease. No pleural effusions. No pneumothorax. No pulmonary nodule or mass noted. Pulmonary vasculature and the cardiomediastinal silhouette are within normal limits. IMPRESSION: No radiographic evidence of acute cardiopulmonary disease. Electronically Signed By: Bunny Andino M.D. On: 04/22/2016 08:11
[2016-04-22] MEDS: NICOTINE 21 MG PATCH TOP SCH (13:35)
--- NOTE | 2016-04-22 15:34 | GENMEDPROG ---
Chief Complaint: Still very congested and short of breath. More hypercapnic today. Notes Reviewed: Yes Events from last night noted and discussed with Clinical Staff Current Medication List: Reviewed Currently: Reports: Cough, Wheezing, GUZMÁN, SOB. Denies: Nausea and Vomiting, Abdominal Pain, Chest Pain DVT Prophylaxis: Yes - Physical Examination Vital Signs and I&O: Last Vital Signs Temp 98.1 F 04/22/16 12:37 Pulse 89 04/22/16 12:37 Resp 20 04/22/16 12:37 BP 144/108 H 04/22/16 12:37 Pulse Ox 93 04/22/16 12:37 Oxygen Pulse Oxygen Saturation 93 O2 Device Nasal Cannula Oxygen Flow Rate 2 Fraction of Inspired Oxygen ( 45 FIO2) Intake & Output 04/19/16 04/20/16 04/21/16 04/22/16 23:59 23:59 23:59 23:59 Intake Total 2306 1843 1384 Output Total 9100 3250 1000 Balance -3404 -0352 384 Patient's weight 81.556 kg 80.195 kg 80.195 kg General: Alert, Oriented x3, Moderate distress, Well nourished. negative: Well appearing (Acutely ill-appearing) HEENT: Normal, PERRLA, EOMI, Anicteric Sclera Neck: Non-tender, Full range of motion, Normal Trachea alignment, Normal inspection. negative: JVD Lymphatics: Normal (no adenopathy). negative: Adenopathy Respiratory: Diminished, Rhonchi, Wheezes Cardiovascular: Regular rate and rhythm, No Gallops,Rubs/Murmurs GI: Normal bowel sounds, Soft, Non tender, No hepatospenomegaly, No masses Extremities/Musculoskeletal: Normal pulses. negative: Tenderness, Swelling, Edema Skin: Warm,Dry and Intact, No rashes, No breakdown, No significant lesion Neurological: Normal Steady Gait, Normal speech, Strength at 5/5 X4 ext, Cranial nerves 3-12 NL Psych/Mental Status: Cooperative, Anxious, Restless Lab/DI/Studies Reviewed: Laboratory Results - last 24 hr 04/20/16 04/22/16 04/22/16 05:15 04:40 04:40 WBC 18.0 H RBC 5.43 H Hgb 15.8 D Hct 48.8 H MCV 90 MCH 29.0 MCHC 32.3 L RDW 15.0 H Plt Count 183 MPV 8.5 Neut % (Auto) Cancelled Lymph % (Auto) Cancelled [place] % (Auto) Cancelled Eos % (Auto) Cancelled Baso % (Auto) Cancelled Absolute Neuts (auto) Cancelled Absolute Lymphs (auto) Cancelled Seg Neuts % (Manual) 82 H Band Neutrophils % 8 H Lymphocytes % (Manual) 6 L Monocytes % (Manual) 4 Absolute Neutrophils 16.20 H Absolute Lymphocytes 1.08 Platelet Estimate Norm RBC Morphology Norm Puncture Site pH pCO2 pO2 HCO3 Total CO2 Base Excess FiO2 % Specimen Drawn By Sodium 139 Potassium 4.2 Chloride 98 Carbon Dioxide 36 H Anion Gap 9 BUN 27 H Creatinine 0.60 Estimated GFR (MDRD) > 60 Glucose 170 H Calculated Osmolality 277 Calcium 9.0 Magnesium 2.40 H 04/22/16 05:18 WBC RBC Hgb Hct MCV MCH MCHC RDW Plt Count MPV Neut % (Auto) Lymph % (Auto) [place] % (Auto) Eos % (Auto) Baso % (Auto) Absolute Neuts (auto) Absolute Lymphs (auto) Seg Neuts % (Manual) Band Neutrophils % Lymphocytes % (Manual) Monocytes % (Manual) Absolute Neutrophils Absolute Lymphocytes Platelet Estimate RBC Morphology Puncture Site Right radial pH 7.300 L pCO2 70.0 H* pO2 70.0 L HCO3 34.4 H Total CO2 36.5 H Base Excess 5.6 H FiO2 % 2.5l nc Specimen Drawn By Whitr Sodium Potassium Chloride Carbon Dioxide Anion Gap BUN Creatinine Estimated GFR (MDRD) Glucose Calculated Osmolality Calcium Magnesium - Assessment (1) Acute respiratory failure with hypoxia Acute J96.01 - ACUTE RESPIRATORY FAILURE WITH HYPOXIA Comment/Plan: More hypercapnic today. Still significantly hypoxic. May require BiPAP. Repeat chest x-ray is negative but CT had shown ground glass appearance. 2D echo within normal limits. The majority of this appears to be due to severe COPD exacerbation (2) COPD exacerbation Inactive J44.1 - CHRONIC OBSTRUCTIVE PULMONARY DISEASE W (ACUTE) EXACERBATION Comment/Plan: Severe with worsening hypercapnia. May need BiPAP. (3) Bacterial pneumonia Suspected J15.9 - UNSPECIFIED BACTERIAL PNEUMONIA Comment/Plan: Continue IV antibiotics and pulmonary toilet. (4) Abnormal CT scan, chest Acute R93.8 - ABNORMAL FINDINGS ON DIAGNOSTIC IMAGING OF BODY STRUCTURES Comment/Plan: Chest CT with ground glass appearing pneumonia. Possible pulmonary infarct. Continue antibiotics nebulizer treatments and pulmonary toilet. (5) Elevated brain natriuretic peptide (BNP) level Acute R79.89 - OTHER SPECIFIED ABNORMAL FINDINGS OF BLOOD CHEMISTRY Comment/ Plan: 2D echo has been ordered. Will evaluate for possible CHF (6) Tobacco abuse Acute Z72.0 - TOBACCO USE Comment/Plan: Stressed smoking cessation. Continue Wellbutrin and nicotine patch (7) Hypertension Acute I10 - ESSENTIAL (PRIMARY) HYPERTENSION Qualifiers: Hypertension type: essential hypertension Qualified Code(s): I10 - Essential (primary) hypertension Comment/Plan: No history of this. Continue to monitor. Case Care Discussed with: Patient, Nursing Staff, Resource Management, Respiratory Therapy
[2016-04-22] MEDS: ENOXAPARIN 40 MG/0.4 ML PFS SQ SCH (18:26)
[2016-04-22] MEDS: ACYCLOVIR 200 MG CAP PO SCH (21:41)
[2016-04-23] MEDS: CEFTRIAXONE 1 GM in D5W 100 ML IV SCH (00:58)
[2016-04-23] MEDS: Albuterol/Ipratropium Neb 3 ML NEB NEB SCH ×4 (01:49→20:46)
[2016-04-23] MEDS: AZITHROMYCIN 500 MG in D5W 250 ML IV SCH (02:16)
[2016-04-23 04:08] LABS: ALLEN'S TEST PASS; BEb 8.7 (+/- 2)
[2016-04-23 04:09] LABS: ABG Draw Site Right Radial
[2016-04-23 05:29] LABS: MPV 8.5 fL (7.4-10.4)
[2016-04-23 05:41] LABS: BLOOD UREA NITROGEN 18 MG/DL (7-17); CALCULATED OSMOLALITY 274 MOs/Kg (270-290); CHLORIDE 96 mEq/L (98-107); GLUCOSE 145 MG/DL (70-99); SODIUM LEVEL 140 mEq/L (137-146)
[2016-04-23] MEDS: METHYLPREDNISOLONE 125 MG/2 ML VIAL IV SCH ×3 (06:01→21:06)
[2016-04-23 06:21] LABS: SEG NEUTROPHIL 87 % (45-76)
[2016-04-23] MEDS: FLUTICASONE PROPIONATE 16 GM BOT NAS SCH ×2 (07:45→21:05)
[2016-04-23] MEDS: FEXOFENADINE HCL 60 MG TAB PO SCH (07:45)
[2016-04-23] MEDS: BUSPIRONE 10 MG TAB PO SCH ×2 (07:46→21:05)
--- NOTE | 2016-04-23 07:57 | GENMEDPROG ---
Chief Complaint: Still hypoxic and hypercapnic but clinically appear some better. She is more alert today with less distress. Still complains of right leg pain but overall much improved Notes Reviewed: Yes Events from last night noted and discussed with Clinical Staff Current Medication List: Reviewed Currently: Reports: Cough, Wheezing, GUZMÁN, SOB. Denies: Nausea and Vomiting, Abdominal Pain, Chest Pain DVT Prophylaxis: Yes - Physical Examination Vital Signs and I&O: Last Vital Signs Temp 98.4 F 04/23/16 03:47 Pulse 107 04/23/16 03:47 Resp 20 04/23/16 03:47 BP 156/90 04/23/16 03:47 Pulse Ox 93 04/23/16 03:47 Oxygen Pulse Oxygen Saturation 93 O2 Device Nasal Cannula Oxygen Flow Rate 2 Fraction of Inspired Oxygen ( 45 FIO2) Intake & Output 04/20/16 04/21/16 04/22/16 04/23/16 23:59 23:59 23:59 23:59 Intake Total 2306 1843 1984 Output Total 9100 3250 1700 1150 Balance -6794 -[facility]7 284 -1150 Patient's weight 81.556 kg 80.195 kg 80.195 kg 83.96 kg General: Alert, Oriented x3, Moderate distress, Well nourished. negative: Well appearing (Acutely ill-appearing) HEENT: Normal, PERRLA, EOMI, Anicteric Sclera Neck: Non-tender, Full range of motion, Normal Trachea alignment, Normal inspection. negative: JVD Lymphatics: Normal (no adenopathy). negative: Adenopathy Respiratory: Diminished, Rhonchi, Wheezes Cardiovascular: Regular rate and rhythm, No Gallops,Rubs/Murmurs GI: Normal bowel sounds, Soft, Non tender, No hepatospenomegaly, No masses Extremities/Musculoskeletal: Normal pulses. negative: Tenderness, Swelling, Edema Skin: Warm,Dry and Intact, No rashes, No breakdown, No significant lesion Neurological: Normal Steady Gait, Normal speech, Strength at 5/5 X4 ext, Cranial nerves 3-12 NL Psych/Mental Status: Cooperative, Anxious, Restless Lab/DI/Studies Reviewed: Laboratory Results - last 24 hr 04/23/16 04/23/16 04/23/16 03:55 05:00 05:00 WBC 14.5 H RBC 5.30 Hgb 15.3 Hct 47.3 H MCV 89 MCH 28.8 MCHC 32.3 L RDW 14.7 H Plt Count 185 MPV 8.5 Neut % (Auto) Cancelled Lymph % (Auto) Cancelled [place] % (Auto) Cancelled Eos % (Auto) Cancelled Baso % (Auto) Cancelled Absolute Neuts (auto) Cancelled Absolute Lymphs (auto) Cancelled Seg Neuts % (Manual) 87 H Band Neutrophils % 2 Lymphocytes % (Manual) 8 L Monocytes % (Manual) 3 Absolute Neutrophils 12.91 H Absolute Lymphocytes 1.16 Platelet Estimate Large plts present RBC Morphology Norm Puncture Site Right radial pH 7.380 pCO2 61.0 H pO2 58.0 L HCO3 36.1 H Total CO2 38.0 H Base Excess 8.7 H FiO2 % 2lpm Specimen Drawn By Canlar Sodium 140 Potassium 4.5 Chloride 96 L Carbon Dioxide 38 H Anion Gap 11 BUN 18 H Creatinine 0.60 Estimated GFR (MDRD) > 60 Glucose 145 H Calculated Osmolality 274 Calcium 9.0 - Assessment (1) Acute respiratory failure with hypoxia Acute J96.01 - ACUTE RESPIRATORY FAILURE WITH HYPOXIA Comment/Plan: Little better today. More alert and interactive. Hypercapnia some better. Continue oxygen support, IV antibiotics, IV steroids and nebulizer treatments. Encourage activity and mobility. (2) COPD exacerbation Inactive J44.1 - CHRONIC OBSTRUCTIVE PULMONARY DISEASE W (ACUTE) EXACERBATION Comment/Plan: Some better today. More alert and interactive. (3) Bacterial pneumonia Suspected J15.9 - UNSPECIFIED BACTERIAL PNEUMONIA Comment/Plan: Continue IV antibiotics and pulmonary toilet. (4) Abnormal CT scan, chest Acute R93.8 - ABNORMAL FINDINGS ON DIAGNOSTIC IMAGING OF BODY STRUCTURES Comment/Plan: Chest CT with ground glass appearing pneumonia. Possible pulmonary infarct. Continue antibiotics nebulizer treatments and pulmonary toilet. (5) Elevated brain natriuretic peptide (BNP) level Acute R79.89 - OTHER SPECIFIED ABNORMAL FINDINGS OF BLOOD CHEMISTRY Comment/ Plan: 2D echo has been ordered. Will evaluate for possible CHF (6) Tobacco abuse Acute Z72.0 - TOBACCO USE Comment/Plan: Stressed smoking cessation. Continue Wellbutrin and nicotine patch (7) Hypertension Acute I10 - ESSENTIAL (PRIMARY) HYPERTENSION Qualifiers: Hypertension type: essential hypertension Qualified Code(s): I10 - Essential (primary) hypertension Comment/Plan: No history of this. Continue to monitor. Case Care Discussed with: Patient, Nursing Staff, Physical Therapy, Resource Management, Respiratory Therapy, Fire Prevention Chief
--- NOTE | 2016-04-23 11:53 | DIRPT ---
CLINICAL DATA: Right lower extremity pain and swelling for the past 2 days. History of smoking. Evaluate for DVT. EXAM: RIGHT LOWER EXTREMITY VENOUS DOPPLER ULTRASOUND TECHNIQUE: Montes-scale sonography with graded compression, as well as color Doppler and duplex ultrasound were performed to evaluate the lower extremity deep venous systems from the level of the common femoral vein and including the common femoral, femoral, profunda femoral, popliteal and calf veins including the posterior tibial, peroneal and gastrocnemius veins when visible. The superficial great saphenous vein was also interrogated. Spectral Doppler was utilized to evaluate flow at rest and with distal augmentation maneuvers in the common femoral, femoral and popliteal veins. COMPARISON: None. FINDINGS: Contralateral Common Femoral Vein: Respiratory phasicity is normal and symmetric with the symptomatic side. No evidence of thrombus. Normal compressibility. Common Femoral Vein: No evidence of thrombus. Normal compressibility, respiratory phasicity and response to augmentation. Saphenofemoral Junction: No evidence of thrombus. Normal compressibility and flow on color Doppler imaging. Profunda Femoral Vein: No evidence of thrombus. Normal compressibility and flow on color Doppler imaging. Femoral Vein: No evidence of thrombus. Normal compressibility, respiratory phasicity and response to augmentation. Popliteal Vein: No evidence of thrombus. Normal compressibility, respiratory phasicity and response to augmentation. Calf Veins: No evidence of thrombus. Normal compressibility and flow on color Doppler imaging. Superficial Great Saphenous Vein: No evidence of thrombus. Normal compressibility and flow on color Doppler imaging. Venous Reflux: None. Other Findings: None. IMPRESSION: No evidence of DVT within the right lower extremity. Electronically Signed By: Trent Pitts M.D. On: 04/23/2016 11:50
[2016-04-23] MEDS: NICOTINE 21 MG PATCH TOP SCH (13:49)
[2016-04-23] MEDS: ENOXAPARIN 40 MG/0.4 ML PFS SQ SCH (18:18)
[2016-04-23] MEDS ORDERED: LORAZEPAM 1 MG TAB PO PRN (21:01)
[2016-04-23] MEDS: ACYCLOVIR 200 MG CAP PO SCH (21:06)
[2016-04-24] MEDS: CEFTRIAXONE 1 GM in D5W 100 ML IV SCH (01:34)
[2016-04-24] MEDS: Albuterol/Ipratropium Neb 3 ML NEB NEB SCH ×4 (01:43→19:55)
[2016-04-24] MEDS: AZITHROMYCIN 500 MG in D5W 250 ML IV SCH (03:05)
[2016-04-24] MEDS: METHYLPREDNISOLONE 125 MG/2 ML VIAL IV SCH ×2 (04:58→14:19)
[2016-04-24 05:22] VITALS: BMI 28.7
[2016-04-24 05:30] LABS: ALLEN'S TEST PASS; BEb 8.2 (+/- 2); TCO2 37.3 MMOL/L (23-27)
[2016-04-24 05:34] LABS: MPV 8.3 fL (7.4-10.4)
[2016-04-24 05:42] LABS: ABG Draw Site Right Radial; MODE NC RATE
[2016-04-24 05:48] LABS: BLOOD UREA NITROGEN 27 MG/DL (7-17); CALCIUM 8.9 MG/DL (8.4-10.2); CALCULATED OSMOLALITY 278 MOs/Kg (270-290); CHLORIDE 97 mEq/L (98-107); GLUCOSE 164 MG/DL (70-99); SODIUM LEVEL 140 mEq/L (137-146)
[2016-04-24 06:29] LABS: SEG NEUTROPHIL 79 % (45-76); TOTAL CELL COUNT 100
[2016-04-24] MEDS: FEXOFENADINE HCL 60 MG TAB PO SCH (09:59)
[2016-04-24] MEDS: FLUTICASONE PROPIONATE 16 GM BOT NAS SCH ×2 (09:59→20:07)
[2016-04-24] MEDS: BUSPIRONE 10 MG TAB PO SCH ×2 (09:59→20:08)
[2016-04-24] MEDS: NICOTINE 21 MG PATCH TOP SCH (14:19)
--- NOTE | 2016-04-24 15:53 | GENMEDPROG ---
Subjective Note: Patient in bed responsive follows commands. Breathing better, still coughing producing small amount of sputum. Still dyspneic with physical exertion. Denies any hemoptysis. Notes Reviewed: Yes Events from last night noted and discussed with Clinical Staff Current Medication List: Reviewed Currently: Reports: Cough, Wheezing, GUZMÁN, SOB, Sputum, Tobacco Use/Hx, Reflux Sx. Denies: Nausea and Vomiting, Abdominal Pain, Chest Pain DVT Prophylaxis: Yes - Physical Examination Vital Signs and I&O: Last Vital Signs Temp 98.6 F 04/24/16 12:00 Pulse 101 04/24/16 12:00 Resp 20 04/24/16 12:00 BP 176/80 04/24/16 12:00 Pulse Ox 93 04/24/16 12:00 Oxygen Pulse Oxygen Saturation 93 O2 Device Nasal Cannula Oxygen Flow Rate 2 Fraction of Inspired Oxygen ( 45 FIO2) Intake & Output 04/21/16 04/22/16 04/23/16 04/24/16 23:59 23:59 23:59 23:59 Intake Total 1843 1984 480 240 Output Total 3250 1700 1150 950 Balance -1407 284 670 -710 Patient's weight 80.195 kg 80.195 kg 83.96 kg 83.28 kg General: Alert, Oriented x3, Cooperative, Moderate distress, Well nourished. negative: Well appearing (Acutely ill-appearing) HEENT: Normal, PERRLA, EOMI, Anicteric Sclera Neck: Non-tender, Full range of motion, Normal Trachea alignment, Normal inspection. negative: JVD Lymphatics: Normal (no adenopathy). negative: Adenopathy Respiratory: Diminished, Rhonchi, Wheezes Cardiovascular: Regular rate and rhythm, Normal S1, No Gallops,Rubs/Murmurs, Normal S2, Murmurs GI: Normal bowel sounds, Soft, Non tender, No hepatospenomegaly, No masses Extremities/Musculoskeletal: Normal pulses. negative: Tenderness, Swelling, Edema Skin: Warm,Dry and Intact, No rashes, No breakdown, No significant lesion Neurological: Normal Steady Gait, Normal speech, Strength at 5/5 X4 ext, Cranial nerves 3-12 NL Psych/Mental Status: Cooperative, Anxious, Restless - Assessment (1) Acute respiratory failure with hypoxia Acute J96.01 - ACUTE RESPIRATORY FAILURE WITH HYPOXIA Comment/Plan: Continue O2 nebs and pulmonary toilet. Monitor pulmonary status. (2) Acute exacerbation of chronic obstructive airways disease Acute J44.1 - CHRONIC OBSTRUCTIVE PULMONARY DISEASE W (ACUTE) EXACERBATION Comment/Plan: Continue nebulized bronchodilators ,wean off IV steroids. (3) Bacterial pneumonia Suspected J15.9 - UNSPECIFIED BACTERIAL PNEUMONIA Comment/Plan: Continue IV antibiotics and pulmonary toilet. (4) Nicotine addiction Acute F17.200 - NICOTINE DEPENDENCE, UNSPECIFIED, UNCOMPLICATED Qualifiers: Nicotine product type: cigarettes Substance use status: unspecified nicotine-induced disorder Qualified Code(s): F17.219 - Nicotine dependence, cigarettes, with unspecified nicotine-induced disorders Comment/Plan: adviced to quit Case Care Discussed with: Patient, Family, Nursing Staff, Resource Management, Farm Owner Operator Education/Counseling Given To: Patient Education/Counseling Given Regarding: Diagnosis, Treatment, Prognosis, Follow Up Total Time: 45 min . Critical Care: No Code: 03471 (12+)
[2016-04-24] MEDS: ENOXAPARIN 40 MG/0.4 ML PFS SQ SCH (17:17)
[2016-04-24] MEDS: ACYCLOVIR 200 MG CAP PO SCH (20:08)
[2016-04-25] MEDS: CEFTRIAXONE 1 GM in D5W 100 ML IV SCH (01:50)
[2016-04-25] MEDS ORDERED: METHYLPREDNISOLONE 40 MG/1 ML VIAL IV SCH (02:00)
[2016-04-25] MEDS: Albuterol/Ipratropium Neb 3 ML NEB NEB SCH ×2 (03:03→09:05)
[2016-04-25 06:28] VITALS: BP 164/94; TEMP 97.4
[2016-04-25] MEDS: BUSPIRONE 10 MG TAB PO SCH (08:26)
[2016-04-25] MEDS: FEXOFENADINE HCL 60 MG TAB PO SCH (08:26)
[2016-04-25 09:05] VITALS: PULSE 99
--- NOTE | 2016-04-25 10:04 | PCM.DCS92 ---
- Final/Secondary Discharge Diagnosis (1) Acute respiratory failure with hypoxia Acute J96.01 - ACUTE RESPIRATORY FAILURE WITH HYPOXIA Present on Admission: Yes Comment: Continue O2 nebs and pulmonary toilet. Monitor pulmonary status. Stable for discharge home (2) Acute exacerbation of chronic obstructive airways disease Resolved J44.1 - CHRONIC OBSTRUCTIVE PULMONARY DISEASE W (ACUTE) EXACERBATION Present on Admission: Yes Comment: Continue nebulized bronchodilators , continue finish prednisone taper (3) Bacterial pneumonia Suspected J15.9 - UNSPECIFIED BACTERIAL PNEUMONIA Present on Admission: Yes Comment: Continue and finish 7 more days of p.o. Levaquin (4) Nicotine addiction Acute F17.200 - NICOTINE DEPENDENCE, UNSPECIFIED, UNCOMPLICATED Present on Admission: Yes cigarettes unspecified nicotine-induced disorder F17.219 - Nicotine dependence, cigarettes, with unspecified nicotine-induced disorders Comment: adviced to quit Discharge Disposition: Home Discharge Condition: Improved Cognitive Discharge Status: Unimpaired Fuctional Discharge Status: Independent Physician Follow up/Referrals: None,No Provider [Family Provider] - One Week Trent Alejo MD [Ambulatory] - Listed Time New Prescriptions: Fexofenadine HCl [Lena] 180 mg PO DAILY #60 tab Albuterol/Ipratropium Neb [Duoneb] 3 ml NEB Q6H #120 nebu Levofloxacin [Levaquin] 750 mg PO DAILY #7 tablet Guaifenesin [Mucinex] 1,200 mg PO BID #20 tbmp.12hr Prednisone 10 mg PO DAILY #30 tab.ds.pk Budesonide/Formoterol Fumarate [Symbicort 160-4.5 Mcg Inhaler] 2 puff INH BID # 1 each O2 Device: Nasal Cannula Oxygen to be used after Discharge: Continuous Diet at Discharge: Heart Healthy, High Fiber Activity: As Tolerated Call Office For: Worsening Symptoms, Fever over 101 F Discontinue use of:: Alcohol, All Illegal Substances, All Types of Tobacco - DC Summary Notes Hospital Course Note:: Discharge summary on patient named KALIA RIVERA admitted to [facility] on 04/19/16 by Lorne Cristobal MD. Date of discharge is []. Patient has initially presented to emergency room on April 19 for evaluation of worsening difficulties breathing cough and phlegm production, chest tightness and wheezes. Please refer to the admission for further details. Upon arrival in ED patient was found to be in severe respiratory distress hypoxic tachypneic and tachycardic. CT chest showed no PE but right middle lobe pneumonia. Treatment of IV antibiotics in the form of Rocephin and Zithromax was instituted and patient was admitted to step-down unit. Patient has initially required high-flow supplemental O2 and was gradually weaned down to 2 L nasal cannula. Patient pulmonary status has very slowly but progressively improved and stabilized. Due to significant bronchospasm she required IV steroids and nebulized bronchodilators. Smoking cessation counseling was provided the patient during this hospital stay. Outpatient regimen for chronic medical conditions was continued as well during hospital patient has remained hemodynamically stable. He did require sliding scale insulin coverage for steroid induced hyperglycemia. 2D echo showed normal LV systolic function with diastolic impaired relaxation. Dopplers of both lower extremities showed no DVT. Labs were monitor and her CBC remained stable , renal function was normal. Activity level was gradually advanced and by the time of discharge patient is able to ambulate with mild exertional dyspnea. She did qualify for home O2 with exercise pulse ox being 66% on room air. It was felt that by April 25 patient has reached maximum benefit of inpatient therapy and in clinically improved condition she has been discharged home to the care of the family her personal PCP Dr. Trent Alejo. Total Time: 45 min. Code: 29589 (>30min.) - Physical Exam Vital Signs: Last Vital Signs Temp 97.4 F L 04/25/16 06:27 Pulse 99 04/25/16 09:04 Resp 18 04/25/16 09:04 BP 164/94 04/25/16 06:27 Pulse Ox 95 04/25/16 09:04 Oxygen Pulse Oxygen Saturation 95 O2 Device Room Air Oxygen Flow Rate 1.5 Fraction of Inspired Oxygen ( 45 FIO2) Constitutional: Alert, Distress (moderate) Oriented to: Time, Person, Place - HEENT Head: Normal ( normocephalic) Eye: Normal (PERRL, EOMI, Sclera white) Oropharynx: Membranes Dry Tympanic Membrane: Normal ENT EAC: Normal Nose: No Symptoms Reported, Congestion - Respiratory/Cardiovascular Respiratory: Diminished, Rhonchi, Wheezes Cardiovascular: Normal, Systolic murmur - GI Auscultation: Normal (NABS) Palpation: Normal (Soft,No rebound or guarding, non distended) Tenderness: Non tender Rectal Exam: Deferred - Exam Deferred: Yes - Musculoskeletal Back: Normal (Non-Tender) Extremities: Edema (+2 pitting edema), Pedal Edema - Integumentary Skin: Normal, Warm, Dry Lymphatics: Normal (no adenopathy). negative: Adenopathy - Neurologic Memory Impaired: Normal Motor Function: Normal Cranial Nerve: Normal Cerebellar: Normal Mood Description: Normal, Anxious Perception: Normal - Other Exam Other Exam Findings: Allergies No Known Allergies Allergy (Verified 04/20/16 02:26) Discharge Home Medication List Acyclovir 1 tab PO DAILY 04/20/16 [History Confirmed 04/20/16] Buspirone HCl [Buspar] 1 tab PO BID 04/20/16 [History Confirmed 04/20/16] Albuterol/Ipratropium Neb [Duoneb] 3 ml NEB Q6H #120 nebu 04/25/16 [Rx] Budesonide/Formoterol Fumarate [Symbicort 160-4.5 Mcg Inhaler] 2 puff INH BID # 1 each 04/25/16 [Rx] Fexofenadine HCl [Lena] 180 mg PO DAILY #60 tab 04/25/16 [Rx] Guaifenesin [Mucinex] 1,200 mg PO BID #20 tbmp.12hr 04/25/16 [Rx] Levofloxacin [Levaquin] 750 mg PO DAILY #7 tablet 04/25/16 [Rx] Prednisone 10 mg PO DAILY #30 tab.ds.pk 04/25/16 [Rx] New Discharge Medications (Rx) Albuterol/Ipratropium Neb [Duoneb] 3 ml NEB Q6H #120 nebu 04/25/16 [Rx] Budesonide/Formoterol Fumarate [Symbicort 160-4.5 Mcg Inhaler] 2 puff INH BID # 1 each 04/25/16 [Rx] Fexofenadine HCl [Lena] 180 mg PO DAILY #60 tab 04/25/16 [Rx] Guaifenesin [Mucinex] 1,200 mg PO BID #20 tbmp.12hr 04/25/16 [Rx] Levofloxacin [Levaquin] 750 mg PO DAILY #7 tablet 04/25/16 [Rx] Prednisone 10 mg PO DAILY #30 tab.ds.pk 04/25/16 [Rx] Home Medications Acyclovir 1 tab PO DAILY 04/20/16 Buspirone HCl [Buspar] 1 tab PO BID 04/20/16 Albuterol/Ipratropium Neb [Duoneb] 3 ml NEB Q6H #120 nebu 04/25/16 Budesonide/Formoterol Fumarate [Symbicort 160-4.5 Mcg Inhaler] 2 puff INH BID # 1 each 04/25/16 Fexofenadine HCl [Lena] 180 mg PO DAILY #60 tab 04/25/16 Guaifenesin [Mucinex] 1,200 mg PO BID #20 tbmp.12hr 04/25/16 Levofloxacin [Levaquin] 750 mg PO DAILY #7 tablet 04/25/16 Prednisone 10 mg PO DAILY #30 tab.ds.pk 04/25/16 04/24/16 05:10 04/24/16 05:10 Microbiology 04/19/16 23:07 Blood Blood Culture - Final No growth aerobically or anaerobically at 120 hours. NORMAL VALUE = No growth 04/20/16 00:15 Blood Blood Culture - Final No growth aerobically or anaerobically at 120 hours. NORMAL VALUE = No growth 04/20/16 03:22 Sputum Gram Stain - Final 04/20/16 03:22 Sputum Sputum Culture - Final Normal oral/respiratory naren present 04/20/16 02:08 Urine - Clean Catch - Midstream Urine Culture - Final No growth <10,00O CFU/ml Microbiology 04/19/16 23:07 Blood Blood Culture - Final No growth aerobically or anaerobically at 120 hours. NORMAL VALUE = No growth 04/20/16 00:15 Blood Blood Culture - Final No growth aerobically or anaerobically at 120 hours. NORMAL VALUE = No growth Active Problems Abnormal CT scan, chest (Acute) R93.[address] with ground glass appearing pneumonia. Possible pulmonary infarct. Continue antibiotics nebulizer treatments and pulmonary toilet. Abnormal EKG (Acute) R94.31 EKG shows a pulmonary disease pattern, right bundle branch block. Question of 2nd degree AV block, Mobitz I, but not definitive. Plan: Repeat EKG in am. Acute exacerbation of chronic obstructive airways disease (Acute) J44.1 Continue nebulized bronchodilators ,wean off IV steroids. Acute respiratory failure (Acute) J96.00 Acute respiratory failure with hypoxia (Acute) J96.01 Continue O2 nebs and pulmonary toilet. Monitor pulmonary status. Elevated blood pressure reading (Acute) R03.0 No history of hypertension. May be transient. Plan: Monitor blood pressure. Recheck as an outpatient. Consider medication if elevation persists. Elevated brain natriuretic peptide (BNP) level (Acute) R79.89 2D echo has been ordered. Will evaluate for possible CHF Leukocytosis (Acute) D72.829 Elevated WBCs on admission. Could be due to infection, prednisone use, or combination. Plan: Cultures ordered. Consider empiric antibiotics. Nicotine addiction (Acute) F17.200 adviced to quit Polycythemia (Acute) D75.1 May be secondary to smoking or dehydration. Plan: Repeat in AM. Stop smoking. Recheck as an outpatient. Tobacco abuse (Acute) Z72.0 Stressed smoking cessation. Continue Wellbutrin and nicotine patch Suspected Problems Bacterial pneumonia (Suspected) J15.9 Continue IV antibiotics and pulmonary toilet. Last Vital Signs Temp 97.4 F L 04/25/16 06:27 Pulse 99 04/25/16 09:04 Resp 18 04/25/16 09:04 BP 164/94 04/25/16 06:27 Pulse Ox 95 04/25/16 09:04 Patient Name: KALIA RIVERA [facility] 1960 AGE: 56 Order Date:04/19/16 Date of Service: Report # [id number] Ord Physician: Viri Ybarra Exam # [id number] Emergency Physician: Azra Ruano MD Exam(s): [id number] CT/CT ANGIO CHEST CLINICAL DATA: 56-year-old female with shortness of breath EXAM: CT ANGIOGRAPHY CHEST WITH CONTRAST TECHNIQUE: Multidetector CT imaging of the chest was performed using the standard protocol during bolus administration of intravenous contrast. Multiplanar CT image reconstructions and MIPs were obtained to evaluate the vascular anatomy. CONTRAST: 80 cc Isovue 370 COMPARISON: Chest radiograph dated 04/20/[address] dated 02/17/2013 FINDINGS: There is a focal area ground-glass and airspace opacity in the right middle lobe anteriorly which may represent focal pneumonia versus an area of pulmonary infarct. There is emphysematous changes of the lungs. Mild ill-defined ground-glass and nodular density in the right lower lobe (series 3 image 65) may represent atelectasis/scarring. Pneumonia is less likely. There is no pleural effusion or pneumothorax. The central airways are patent. The thoracic aorta appears unremarkable. There is prominence of the main pulmonary trunk compatible with a degree of pulmonary hypertension. No CT evidence of pulmonary embolism. There is no cardiomegaly or pericardial effusion. Top-normal right hilar lymph nodes. The esophagus is grossly unremarkable. No thyroid nodule identified. There is no axillary adenopathy. The chest wall soft tissues appear unremarkable. There is degenerative changes of the spine. No acute fracture. The visualized upper abdomen appears grossly unremarkable. Review of the MIP images confirms the above findings. IMPRESSION: No CT evidence of pulmonary embolism. Focal wedge-shaped ground-glass and nodular density involving the paramediastinal right middle lobe most compatible with pneumonia versus an area of pulmonary infarct. Clinical correlation is recommended. Electronically Signed By: Juanjo Rothman M.D. On: 04/20/2016 01:09 Patient Name: KALIA RIVERA : 1960 Age: 56 Unit #: [id number] Gender: Female Service Date: 04/19/16 Ordering Physician: Vince Vasquez MD Exam Report #: [id number] Technologist: Valerio Vigil [facility] INDICATION: SOB HEIGHT: 170.2 cm (5 ft 7.0 in) WEIGHT: 81.2 kg (179.0 lbs) BP: 163/85 BSA: 1.606562 m MEASUREMENTS 2D RVIDd: 3.2 cm IVSd: 1.1 cm LVIDd: 4.0 cm LVPWd: 1.1 cm LVIDs: 2.7 cm EF(Teich): 62.03 % LA Diam: 3.1 cm EF Biplane: 71.13 % LAESV MOD A4C: 31.0 ml LAESV MOD A2C: 41.3 ml LAESV Index (A-L): 20.44 ml/m M-MODE Ao Diam: 3.3 cm LA Diam: 3.1 cm DOPPLER MV E Edson: 0.66 m/s MV A Edson: 0.97 m/s MV PHT: 111.25 ms MVA By PHT: 1.98 cm LVOT Vmax: 1.65 m/s AV Vmax: 1.75 m/s FINDINGS ------- Procedure:2D images, m-mode, color and spectral Doppler were obtained and reviewed. ECG rhythm:Sinus rhythm. Study quality:This was a technically adequate study. Left Ventricle:The left ventricular size is normal. There is borderline concentric left ventricular hypertrophy. Overall left ventricular systolic function is normal with, an EF between 65 - 70 %. The diastolic filling pattern indicates impaired relaxation. Right Ventricle:The right ventricle is normal in size and function. Left Atrium:The left atrium is normal in size. Right Atrium:The right atrium is normal in size and function. Aortic Valve:The aortic valve is trileaflet, and appears structurally normal. No aortic stenosis or regurgitation. Mitral Valve:Normal appearing mitral valve. There is trace to mild mitral regurgitation. Tricuspid Valve:The tricuspid valve appears structurally normal. Trace tricuspid regurgitation present. Pulmonic Valve:The pulmonic valve is normal. Trace/mild (physiologic) pulmonic regurgitation. Aorta:The aortic root, ascending aorta and aortic arch appear normal. IVC:Normal inferior vena cava with normal inspiratory collapse. Pericardium:There is no pericardial effusion. CONCLUSIONS 1. Overall left ventricular systolic function is normal with, an EF between 65 - 70 %. 2. The diastolic filling pattern indicates impaired relaxation. 3. The left atrium is normal in size. 4. There is trace to mild mitral regurgitation. 5. Trace tricuspid regurgitation present. Electronically Signed By: Johnathon Valladares MD -- Electronically Signed On: 11:50:31 Copy to: Nubia Perez MD~ Patient Name: KALIA RIVERA LOC: [facility] : 1960 AGE: 56 Order Date:04/22/16 Date of Service:07/05 Report # [id number] Ord Physician: Vince Vasquez MD Exam # [id number] Emergency Physician: Azra Ruano MD Exam(s): [id number] US/US EXTREM LOW VENOUS - R CLINICAL DATA: Right lower extremity pain and swelling for the past 2 days. History of smoking. Evaluate for DVT. EXAM: RIGHT LOWER EXTREMITY VENOUS DOPPLER ULTRASOUND TECHNIQUE: Montes-scale sonography with graded compression, as well as color Doppler and duplex ultrasound were performed to evaluate the lower extremity deep venous systems from the level of the common femoral vein and including the common femoral, femoral, profunda femoral, popliteal and calf veins including the posterior tibial, peroneal and gastrocnemius veins when visible. The superficial great saphenous vein was also interrogated. Spectral Doppler was utilized to evaluate flow at rest and with distal augmentation maneuvers in the common femoral, femoral and popliteal veins. COMPARISON: None. FINDINGS: Contralateral Common Femoral Vein: Respiratory phasicity is normal and symmetric with the symptomatic side. No evidence of thrombus. Normal compressibility. Common Femoral Vein: No evidence of thrombus. Normal compressibility, respiratory phasicity and response to augmentation. Saphenofemoral Junction: No evidence of thrombus. Normal compressibility and flow on color Doppler imaging. Profunda Femoral Vein: No evidence of thrombus. Normal compressibility and flow on color Doppler imaging. Femoral Vein: No evidence of thrombus. Normal compressibility, respiratory phasicity and response to augmentation. Popliteal Vein: No evidence of thrombus. Normal compressibility, respiratory phasicity and response to augmentation. Calf Veins: No evidence of thrombus. Normal compressibility and flow on color Doppler imaging. Superficial Great Saphenous Vein: No evidence of thrombus. Normal compressibility and flow on color Doppler imaging. Venous Reflux: None. Other Findings: None. IMPRESSION: No evidence of DVT within the right lower extremity. Electronically Signed By: Trent Pitts M.D.
[2016-04-25] MEDS: FLUTICASONE PROPIONATE 16 GM BOT NAS SCH (11:06)
== END 2016-04-25 14:50 | disposition home or self-care (01) | DRG 193 ==
LOC: ED 22:27 → PCU 23:51 → MASU 04-24 23:05
PROVIDERS: ADMIT Internal Medicine; ATTEND Internal Medicine
PROC: 039B3ZZ Drainage of Right Radial Artery, Percutaneous Approach (ICD-10-PCS; principal; 2016-04-19)
DX: J15.9 Unspecified bacterial pneumonia (principal); J96.01 Acute respiratory failure with hypoxia; J44.1 Chronic obstructive pulmonary disease with (acute) exacerbation; J44.0 Chronic obstructive pulmonary disease with (acute) lower respiratory infection; F17.219 Nicotine dependence, cigarettes, with unspecified nicotine-induced disorders; T38.0X5A Adverse effect of glucocorticoids and synthetic analogues, initial encounter; Y92.239 Unspecified place in hospital as the place of occurrence of the external cause; Z79.899 Other long term (current) drug therapy; R79.89 Other specified abnormal findings of blood chemistry; R93.8 Abnormal findings on diagnostic imaging of other specified body structures; R94.31 Abnormal electrocardiogram [ECG] [EKG]; D75.1 Secondary polycythemia; I10 Essential (primary) hypertension; Z23 Encounter for immunization
CPT/HCPCS: 36415; 36600; 71010; 71275; 80048; 80053; 81001; 82803; 82962; 83605; 83735; 83880; 84484; 85007; 85025; 85027; 85610; 85730; 87040; 87070; 87086; 87205; 90471; 90656; 90732; 93005; 93306; 94640; 96372; 96374; 98960; 99284; 99406; A9698; J0456; J0696; J1650; J2920; J2930; J3490; J7060; J7070; J7620